=== PATIENT | male | born 1960 | race African-American/Black ===

== ENCOUNTER 2017-09-25 18:18 | Emergency (ER) | payer BC ==
[2017-09-25 18:34] LABS: #Basophils 0.1 thou/uL (0.0-0.2); #Eosinphils 0.1 thou/uL (0.0-0.7); #Lymphocytes 1.8 thou/uL (1.20-3.40); #Monocytes 0.9 thou/uL (0.11-0.59); #Neutrophils 4.8 thou/uL (1.40-6.50); %Basophils 1.2 % (0.0-1.0); %Eosinophils 1.4 % (0.0-10.0); %Lymphocytes 23.5 % (21.0-51.0); %Monocytes 11.8 % (0.0-10.0); Mean Corpuscular HGB CONC 33.6 g/dL (32.0-36.0); Mean Corpuscular Hemoglobin 30.1 pg (27.0-31.0); Mean Corpuscular Volume 89.5 fl (80.0-94.0); Mean Platelet Volume 7.1 fL (7.4-10.4); Platelet Count 154 thou/uL (130-400); RBC Distribution Width 12.4 % (11.5-14.5); Red Blood Cell (RBC) Count 4.98 mill/uL (4.70-6.10); White Blood Cell (WBC) Count 7.8 thou/uL (4.8-10.8)
[2017-09-25 18:41] LABS: PTT 30.6 SEC (22.9-36.1); Prothrombin Time 13.4 SEC (12.0-14.7)
[2017-09-25 18:47] LABS: Anion Gap 14 mmol/L (10-20); BUN (Urea Nitrogen) 17 mg/dL (8.4-25.7); Calc. Creatinine Clearance 0 mL/min (70-130); Calcium 9.2 mg/dL (7.8-10.44); Carbon Dioxide 28 mmol/L (22-29); Chloride 104 mmol/L (98-107); Estimated GFR-MDRD 77; Glucose 82 mg/dL (70-105); Potassium 3.4 mmol/L (3.5-5.1); Sodium 143 mmol/L (136-145)
[2017-09-25 19:03] LABS: Bilirubin Negative (Negative); Blood, Urine Negative (Negative); Clarity Clear (Clear); Glucose, Urine (Dipstick) Negative (Negative); Leukocyte Negative (Negative); Nitrite Negative (Negative); Protein, Urine (Dipstick) Negative (Neg-Trace); Specific Gravity, Urine 1.025 (1.005-1.030); Urobilinogen 0.2 mg/dL (0.2-1.0); pH, Urine 5.5 (5.0-9.0)
[2017-09-25] MEDS ORDERED: Morphine 4 MG/ML Carpuject ONE (19:39)
--- NOTE | 2017-09-25 19:53 | RAD ---
RIGHT HIP TWO VIEWS: Date: 09-25-17 FINDINGS: No fracture was seen. The hip appears intact and the joint space is normal in width. The adjacent pub ic ring appears intact. IMPRESSION: Aside from mild widening of the symphysis, there were no acute findings. POS: HOME
--- NOTE | 2017-09-25 20:15 | RAD ---
PELVIS ONE VIEW: Date: 09-25-17 FINDINGS: The pubic symphysis is mildly widened. The SI joints seem symmetrical and do not seem particularly wi de. No pelvic fractures were identified. Arcuate lines of the sacrum appear intact. The hips appear i ntact. IMPRESSION: Mild widening of the symphysis, presumably due to recent trauma. POS: HOME
--- NOTE | 2017-09-25 20:16 | RAD ---
LEFT HIP TWO VIEWS: Date: 09-25-17 Comparison: Right hip. FINDINGS: No fracture was seen. The proximal femur and adjacent pubic ring appear intact. The hip joint space i s normal. There are some areas of what appear to be calcifications in the proximal thigh muscles medi ally which would be from old trauma. Alternatively, this could be on the patient's clothes. IMPRESSION: No acute findings. POS: HOME
--- NOTE | 2017-09-25 20:21 | CT ---
CT PELVIS WITH CONTRAST: Date: 09-25-17 Technique: Spiral CT of the pelvis was done following trauma. Axial slices were acquired then coronal and sagittal reconstructions were done. FINDINGS: No fracture was appreciated. Arcuate lines of the sacrum all appeared intact. No coccygeal abnormalit y was seen. The SI joints are symmetrical. The pubic symphysis only shows some very slight widening. Each pubic ring appeared intact, as did each proximal femur. Thus, no acute bony findings were seen a side from the slight diastasis of the symphysis. There is some degenerative changes in the lower lumbar spine with mild central bulging of the L4-5 an d L5-S1 discs. There is some irregular cortex to the endplate on each side of the L4-5 disc space. There is no evidence of extravasation of contrast or other signs of arterial injury. No free fluid wa s seen in the pelvis. The prostate is mildly prominent in size. Some soft tissue reticulation was see n in the midline anteriorly in the pubic region, potentially from direct trauma. No muscular hematoma s were seen. IMPRESSION: 1. No acute fracture visible. 2. Minor diastasis of the symphysis without other clear findings. 3. Soft tissue reticulation of the pubic soft tissues, presumably due to the recent trauma. 4. Mild central bulging of the L4-5 and L5-S1 discs without signs of clear impingement. Findings discussed with Dr. Maldonado at 1932 on 09-25-17. Code CR. POS: HOME
== END 2017-09-25 20:00 | disposition home or self-care (01) ==
LOC: BURERS 18:18 → EDSTATUS 18:18 → BURERS 20:00
DX: T81.30XA Disruption of wound, unspecified, initial encounter (principal); I10 Essential (primary) hypertension; Z79.899 Other long term (current) drug therapy; W22.8XXA Striking against or struck by other objects, initial encounter
CPT/HCPCS: 72170; 72193; 80048; 81003; 85025; 85610; 85730; 96374; J2270

== ENCOUNTER 2017-10-27 09:39 | Outpatient (CLI) | payer BC ==
--- NOTE | 2017-10-27 19:51 | CT ---
CT OF THE PELVIS WITHOUT CONTRAST 10/27/17 Comparison is made with last month's study done immediately post trauma on 09/25/17. Axial slices were acquired today. Coronal and sagittal reconstructions were then done. The soft tissue reticulation seen in the low suprapubic area has largely resolved with only a small a mount of residual. There is now some calcification in the muscles on the left side anterior to the pu bic rings. This is mostly in the adductor group of muscles, such as adductor longus and brevis. This is presumably calcification in hematoma, though focal blood collections were not visible on the prior CT. The pubic symphysis still shows a small amount of diastasis but there has been little change ove r time. I still see no major pelvic fractures. The SI joints seem reasonably symmetrical. Schmorl's n odes are seen in the end plates of L4-L5. The other pelvic structures appeared intact. The hips appea red intact. Arcuate lines of the sacrum appears intact. IMPRESSION: The major change since last month is appearance of calcification in the soft tissues anterior to the left pubic ring. This is felt to be in muscle and probably the result of trauma/hematoma in this set of muscles. The adductor muscles on the left seem to be primarily involved. POS: HOME
== END 2017-10-27 09:40 | disposition home or self-care (01) ==
LOC: BURCT 09:39
PROVIDERS: ATTEND Family Medicine
DX: S32.509A Unspecified fracture of unspecified pubis, initial encounter for closed fracture (principal)
CPT/HCPCS: 72192

== ENCOUNTER 2017-12-08 19:36 | Emergency (ER) | payer BC ==
[2017-12-08] MEDS ORDERED: Metoprolol Tartrate 5 MG/5 ML VIAL ONE (20:35)
[2017-12-08] MEDS ORDERED: Metoprolol Tartrate 25 MG TAB PO SCH (21:00)
== END 2017-12-08 20:55 | disposition home or self-care (01) ==
LOC: BURERS 19:36
DX: I10 Essential (primary) hypertension (principal); Z79.899 Other long term (current) drug therapy
CPT/HCPCS: 99283

== ENCOUNTER 2018-06-02 08:49 | Outpatient (CLI) | payer BC ==
--- NOTE | 2018-06-02 10:42 | RAD ---
PELVIS: Date: 06/02/18 Comparison is made with the 09/25/17 study. I also reviewed the CT scan through the pelvis that had b een done since then. FINDINGS: Calcifications in the areas around the left pubis have become denser over time. One dense calcificati on is seen just above the left superior pubic ramus and others are seen on each side of the inferior left pubic ramus. These were present on CT scanning in October, but are now dense enough to be seen o n plain radiographs. The pubic rings themselves appear intact with no evident fractures in them. The width of the pubic symphysis is slightly increased compared to normal, but does not seem as wide as l ast September. IMPRESSION: Further soft tissue calcifications around the left pubic rings, but the bones themselves show no ayse s fracture. At most, the junction of the left pubic ring with the body of the pubis may be marginally more sclerotic than it was in the past. POS: HOME
== END 2018-06-02 08:50 | disposition home or self-care (01) ==
LOC: BURRAD 08:49
PROVIDERS: ATTEND Family Medicine
DX: Z09 Encounter for follow-up examination after completed treatment for conditions other than malignant neoplasm (principal); M79.89 Other specified soft tissue disorders; Z87.81 Personal history of (healed) traumatic fracture
CPT/HCPCS: 72170

== ENCOUNTER 2019-04-06 23:06 | Outpatient (CLI) | payer BC ==
--- NOTE | 2019-04-06 23:34 | RAD ---
CHEST TWO VIEWS: 04/06/19 No prior films were available for comparison. The heart is normal in size and the lungs are clear. No infiltrate or effusion was seen. There is no vascular congestion or edema. The mediastinum appears normal. IMPRESSION: No acute thoracic finding. POS: HOME
== END 2019-04-06 23:07 | disposition home or self-care (01) ==
LOC: BURRAD 23:06
PROVIDERS: ATTEND Family Medicine
DX: R06.02 Shortness of breath (principal); I10 Essential (primary) hypertension
CPT/HCPCS: 71046

== ENCOUNTER 2023-07-06 08:45 | Outpatient (CLI) | payer BC | END 2023-07-06 08:46 | disposition home or self-care (01) | LOC: BURRAD 08:45 | PROVIDERS: ATTEND Family Medicine | DX: M54.50 Low back pain, unspecified (principal); G89.29 Other chronic pain; M99.03 Segmental and somatic dysfunction of lumbar region; M47.816 Spondylosis without myelopathy or radiculopathy, lumbar region; M51.36 Other intervertebral disc degeneration, lumbar region | CPT/HCPCS: 72100 ==